=== PATIENT | male | born 1945 | race Caucasian/White ===

== ENCOUNTER 2016-10-08 06:00 | Inpatient (IN) | payer MEDICARE, BC ==
[~2016-10-08] VITALS: Ht 182.9 cm; Wt 73.0 kg
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
--- NOTE | ~2016-10-08 | CATH ---
Cardiac Diagnostic Report Demographics Patient Name FAITH Palumbo Gender Male Date of 1945 Age 71 year(s) Patient Number [id number] Date of Study 10/10/2016 Visit Number [id number] Room Number G63[address] [place] [id number] Ht 182.88 cm Wt 73.03 kg Referring [facility] Primary Physician Physician Performing Efstratiou Secondary Physician Physician Antonette Crenshaw MD Diagnostic Efstratiou Assisting Physician Physician Antonette Crenshaw MD Interventional Physician Freelance Copywriter Physician Findings and Conclusions Diagnostic Findings and Conclusion Mild pulmonary hypertension (Echo suggested severe) Severe 3 vessel CAD- MARTE to LAD is adequate-large Ramus is patent The inferior wall is supplied through collaterals form the septal nuclear unit operator which has a 90% ostial lesion. Both Circumflex and RCA are occluded as well as the PLB graft Diagnostic Recommendations Medical treatment because of recent hemorrhagic brain contusion After clearance from Neurosurgery PCI to Septal Procedure Description The patient was brought to the diagnostic cardiac catheterization-EP laboratory in the fasting, non-sedated state. Informed consent was obtained in the written and verbal form after the risks and benefits were explained. The patient had no further questions and agreed to proceed. The planned puncture-incision site(s) were shaved and prepped with ChloraPrep and draped in the usual sterile manner. Conscious sedation, supplemental oxygen, and pain control medications were delivered by a registered nurse under physician guidance. Surface ECG rhythm, blood pressure measurement, and pulse oximetry were monitored throughout the procedure. Arterial access. The access site was infiltrated with lidocaine. The vessel was entered with the Seldinger technique. A sheath was advanced into the vessel and used for catheter placement. Selective left coronary angiography. A catheter was advanced into the left coronary vessel ostium under Fluoroscopic guidance. Contrast was injected by hand. Images were obtained in multiple projections. Selective right coronary angiography. A catheter was advanced into the right coronary vessel ostium under fluoroscopic guidance. Contrast was injected by hand. Images were obtained in multiple projections. Selective MARTE graft angiography. A catheter was advanced into the left internal mammary graft ostium under fluoroscopic guidance. Contrast was injected by hand. Images were obtained in multiple projections. Right heart catheterization. A Tipton Kavitha catheter was successfully advanced to the right atrium, right ventricle, pulmonary artery, and pulmonary artery wedge position under fluoroscopic guidance. Resting hemodynamics were obtained. Measurements included pressures, arterial and venous oxygen saturations and calculating cardiac output. Arterial artery hemostasis was achieved. The patient was transferred to a regular nursing floor via cart accompanied by a nurse. The patient left the laboratory in stable condition. Diagnostic Cath Status: Urgent Procedure Procedure Type Diagnostic procedure:Aortogram:, Aortic Root, Angiography:, RHC w/Coronary Indications: Non-ST elevation SC and Chest pain. The procedure was explained in detail to the patient. Risks, complications and alternative treatments were reviewed. Written consent was obtained. Medications Reviewed with Patient prior to Procedure. Angiographic Findings Dominance: Right Cardiac Arteries and Lesion Findings LMCA: Normal (0% Stenosis).patent LAD: Abnormal.100%mid Diag 1 30% Diag 2 95% Septal 90% provides collaterals to inferior wall MARTE to LAD patent , paimiut vessel has 30% at the anastomosis and 50% distally Lesion on Mid LAD: Mid subsection.100% stenosis . Lesion on 1st Diag: Proximal subsection.30% stenosis . Lesion on 2nd Diag: Proximal subsection.94% stenosis . Lesion on 1st Septal: Ostial.90% stenosis . LCx: Abnormal.100% ostial Lesion on Prox CX: Ostial.100% stenosis . RCA: Abnormal.100% mid diffusely diseased SVG to PL is totally occluded Lesion on Mid RCA: Mid subsection.100% stenosis . Ramus: Normal (0% Stenosis). Cardiac Grafts - There is a MARTE graft that originates at the MARTE and attaches to the Mid LAD (MARTE to LAD patent paimiut vessel has 30% at the anastomis and 50% distally). - There is a graft that originates at the Aorta Right and attaches to the 1st RPL (SVG to PLB is 100% occluded). Coronary Tree Procedure Data Procedure Date Date: 10/10/2016Start: 11:59 AMEnd: 12:52 PM Entry Locations - Antegrade Percutaneous access was performed through the Left Brachial vein. A 6 Fr sheath was inserted. Hemostasis was successfully obtained using Manual Compression. Closure Comments: by Pradeep. - Retrograde Percutaneous access was performed through the Left Radial artery (Primary location). A 6 Fr sheath was inserted. Hemostasis was successfully obtained using Mechanical Compression. Closure Comments: 15 cc air in r band deployed by Pradeep. Procedure Medications Order and Administration + + +-------+-------+ !Time !Medication !Dosage !Route ! + + +-------+-------+ !10/10/2016 !Fentanyl !25 mcg !I.V. ! !11:59 AM ! ! ! ! + + +-------+-------+ !10/10/2016 !Oxygen !2 l/min!NC ! !12:04 PM ! ! ! ! + + +-------+-------+ !10/10/2016 !PAE Radial Cocktail: Heparin 5000 units, ! !I.A. ! !12:05 PM !Nitroglycerin 200mcg, Verapamil 3 mg ! ! ! ! !(ACC_3) ! ! ! + + +-------+-------+ Devices Used - A6 Fr. Balloon Wedge Catheterwas used for:Right heart cath. - A6 Fr. BS JR 4 Diag. Catheterwas used for:Right coronary angiography. - A5 Fr. BS JR 4 Diag. Catheterwas used for:Right coronary angiography. - A5 Fr. BS MPA2 Diag. Catheterwas used for:SVG. - A5 Fr. BS JL 3.5 Diag. Catheterwas used for:Left coronary angiography. - A5 Fr. BS Angled Pigtail Diag. Catheterwas used for:Aortic Root. Contrast Material - Isovue [id number] ml Fluoroscopy Time: Diagnostic: 14:12 minutes. Total: 14:12 minutes. Fluoroscopy Dose: Diagnostic: 1263 mGy. Total: 1263 mGy. Estimated Blood Loss: 25 ml. Medical History Allergies - Codiene. Risk Factors The patient risk factors include:prior PCI; prior CABG on 04/02/1999;previous vascular surgery: Femoral popliteal bypass;peripheral arterial disease, cerebrovascular disease, physical activity, treated hypercholesterolemia, treated hypertension, family history of premature CAD, insulin-treated diabetes mellitus, last creatinine: 1.1 mg/dl, creatinine clearance: 64.55 ml/min, dyslipidemia, former tobacco use and prior SC . Admission Data Admission Date: 10/08/2016 Admission Time: 07:08 AM Admit Source: Transfer acute care facility Insurance Payors: Medicare. Admission Medications + +------+------+ + + + + !Medication !Dosage!Times !Last !Last !Administered !Comments ! ! ! !Per !Delivery !Delivery ! ! ! ! ! !Day !Date !Time ! ! ! + +------+------+ + + + + !Aspirin ! ! ! ! ! ! ! !(any) ! ! ! ! ! ! ! + +------+------+ + + + + !HANY ! ! ! ! ! ! ! !Inhibitor ! ! ! ! ! ! ! !(any) ! ! ! ! ! ! ! + +------+------+ + + + + !Beta Mariana! ! ! ! ! ! ! !(any) ! ! ! ! ! ! ! + +------+------+ + + + + !Statin (any)! ! ! ! ! ! ! + +------+------+ + + + + !Prasugrel ! ! ! ! ! ! ! + +------+------+ + + + + !Nitrates (iv! ! ! ! ! ! ! !or buccal) ! ! ! ! ! ! ! + +------+------+ + + + + Clinical Evaluation Leading to Procedure - The patient's CAD presentation was assessed as: Non-STEMI. - The patient's anginal syndrome during the past two weeks was assessed as: Class III according to the [place] Cardiovascular Society Classification System (CCS). Anti-anginal medications were prescribed during the past two weeks. The medications are: Beta Blockers, Long Acting Nitrates and Other. - The patient has been in a state of heart failure within the past two weeks. - The patient's heart failure status was assessed as NYHA Class III, with CHF symptoms of VANCE. Snapshots Hemodynamics Condition: Rest O2 Consumption: Estimated: 229.71Heart Rate: 77 bpm Oxygen Saturation +--------+-----+----+ +---+ + !Location!pCO2 !pO2 !% Saturation !Hgb!O2 Content ! +--------+-----+----+ +---+ + !FA ! ! !93.3 !9.1! ! +--------+-----+----+ +---+ + !PA ! ! !59 !9.1! ! +--------+-----+----+ +---+ + !RA ! ! !62.1 !9.1! ! +--------+-----+----+ +---+ + Pressures (mmHg) +-----+ + !Site !Pressure ! +-----+ + !RA !7/6 (4) ! +-----+ + !RV !35/0 ,3 ! +-----+ + !PCW !14/15 (10) ! +-----+ + !PA !36/4 (21) ! +-----+ + !AO !148/66 (98) ! +-----+ + !AO !70/36 (50) ! +-----+ + Cardiac Output +------+ + + + !Method!CO (l/min) !CI (l/min/m2) !SV (ml) ! +------+ + + + !Klarissa !5.41 !2.8 !70.22 ! +------+ + + + Shunts Oxygen Values O2 Capacity 123.76 O2 Consumption 229.71 Flows (l/min) Qs 5.95 Vascular Resistance (dynes x sec x cm-5) + +----+----+----+----+---------+-------+ !CO method !TSVR!SVR !TPVR!PVR !TPVR/TSVR!PVR/SVR! + +----+----+----+----+---------+-------+ !Klarissa !9.23!8.58!3.92!2.11!0.42 !0.25 ! + +----+----+----+----+---------+-------+ !Qp or Qs !8.39!7.8 ! ! ! ! ! + +----+----+----+----+---------+-------+ Signatures dtt: Neena Connor dtd: 10/10/16 1159 Physician Self Edit
--- NOTE | ~2016-10-08 | HP ---
PATIENT'S NAME: [facility] AGE: 71 Y [address] ROOM: [place] [address] LOCATION: GPCU ADMIT DATE: 10/08/2016 History & Physical DISCHARGE DATE: FAMILY PHYSICIAN: PHYSICIAN, UNKNOWN ATTENDING PHYSICIAN: JEANNINE VASQUEZ DATE OF SERVICE: CHIEF COMPLAINT: Fall. HISTORY OF PRESENT ILLNESS: A 71-year-old gentleman with a past medical history of coronary artery disease, peripheral vascular disease, diabetes, and hypertension, was at [place], where he suffered a fall from his electric cart, hitting his head without any loss of consciousness. He was taken to the emergency department where a CAT scan was done, which did show hemorrhagic left cortical contusion. He was transferred here for further medical care. On inquiry, he stated that during his stay in the emergency department, he felt the chest pressure which was located in the center of chest, sudden in onset 10/09. No alleviating or aggravating factors. No radiation associated with some diaphoresis and shortness of breath. It lasted about 10 minutes. He also endorsed having some dizziness. On further inquiry, he denied having any cough production, but stated that he is short of breath for a long time with minimal exertion. Denies any abdominal pain, burning on urination, but stated that he is going to get the ureteral stent replaced on the left side in next couple of days. No extremity swelling reported. REVIEW OF SYSTEMS: All other systems reviewed and were negative except what is mentioned in the HPI. ALLERGIES: THE PATIENT IS ALLERGIC TO CODEINE. PAST MEDICAL HISTORY: Significant for: 1. Coronary artery disease with CABG done in 1999, later multiple PCIs done at [facility] in [place]. Peripheral vascular disease status post right femoral aortic bypass. 2. 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 3. Renal calculi, status post left stent. 4. Chronic respiratory failure, not on any oxygen at home. 5. Sleep apnea not using CPAP at home. 6. Essential hypertension. PATIENT'S NAME: [facility] AGE: 71 Y [address] ROOM: [place] [id number] LOCATION: GPCU ADMIT DATE: 10/08/2016 History & Physical DISCHARGE DATE: FAMILY PHYSICIAN: PHYSICIAN, UNKNOWN ATTENDING PHYSICIAN: JEANNINE VASQUEZ 7. Chronic thrombocytopenia. MEDICATIONS: Medications are being reconciled right now. SOCIAL HISTORY: Quit smoking in 1986. No alcohol or drug abuse. Lives in [place]. FAMILY HISTORY: Significant for coronary artery disease in mom and dad. PHYSICAL EXAMINATION: VITAL SIGNS: 147/67, 52, afebrile, 16. GENERAL: No acute distress. Alert and oriented x3. HEENT: Head, left-sided contusion noted on the head. Eyes, nonicteric, no pallor. Oropharynx, dry mucous membranes. CARDIOVASCULAR: S1, S2. No murmurs, rubs, or gallops. LUNGS: Clear to auscultation bilaterally. ABDOMEN: Soft, nontender, nondistended. Bowel sounds present. EXTREMITIES: Left lower extremity below-knee amputation. Right side does not reveal any clubbing, cyanosis, or edema. MUSCULOSKELETAL: No muscle tenderness or joint swelling noted. NEUROLOGIC: Cranial nerves 2 through 12 intact. No motor or sensory deficits. PSYCH: Normal affect, mood, and speech. LYMPHATICS: No lymphangitis or lymphadenopathy noted. ENDOCRINE: No thyromegaly or cushingoid features noted. LABORATORY DATA: Lab work from outside facility showed sodium of 147, potassium 3.1, chloride 114, bicarb 24, BUN 15, creatinine 1.3, platelets of 8.3, hemoglobin of 9.3 and white count of 4.6. CT scan as mentioned in the HPI showed hemorrhagic cortical contusion without any epidural or subarachnoid hemorrhage. CT of the spine was also done, which showed occlusion of the left vertebral artery due to chronic atherosclerosis. Chest x-ray was done which was within normal limits. An EKG was done on arrival to our hospital which did show sinus rhythm with T-wave inversions in the anterolateral leads. ASSESSMENT/PLAN: 1. Hemorrhagic cortical contusion. 2. Non-ST segment elevation myocardial infarction. 3. Insulin-dependent diabetes mellitus. 4. Peripheral vascular disease. 5. Hyperlipidemia. 6. Hypertension. PATIENT'S NAME: JER CUEVAS [facility] AGE: 71 Y [address] ROOM: [place] [address] LOCATION: GPCU ADMIT DATE: 10/08/2016 History & Physical DISCHARGE DATE: FAMILY PHYSICIAN: PHYSICIAN, UNKNOWN ATTENDING PHYSICIAN: JEANNINE VASQUEZ 7. Chronic respiratory failure. 8. Thrombocytopenia. 9. Hypokalemia. 10. Renal calculi. PLAN: We are going to admit this patient. Dr. Mejia has been consulted from Neurosurgery. The plan is to just monitor him here in the hospital. This situation has been complicated by this chest pain and EKG changes and the rising troponins which have been 0.1 and 0.3 now. Cardiology has been consulted. No antiplatelets or heparin drip can be started. At this point, we are going to get further troponin levels as well as echocardiograph. We are going to obtain records from the [facility] in [place]. We are going to start him on statin. We will replace the potassium. Sliding scale insulin, we will obtain HGB A1c, TSH, and lipid profile. We will monitor his pulse ox here. He has been getting low saturations here. We will watch his platelets for now. Further management will depend on his progress in the hospital. MD TERI TAMAYO/rimma /[id number] D: 253 T: HISTORY & PHYSICAL
--- NOTE | ~2016-10-08 | ECHO ---
Transthoracic Echocardiography Report (TTE) Demographics Patient Name JER CUEVAS Date of Study 10/08/2016 Patient Number [id number] Visit Number [id number] Date of 1945 Room Number G6317 Gender Male Number Age 71 year(s) Referring Nikolas Whitman Head Cleaning Porter Silas Crenshaw MD RDCS, RVT Physician Interpreting [place] [employer] Compliance Manager Physician Antonette Crenshaw MD Supervising Ordering [facility] MD/MLP Physician Antonette Crenshaw MD Nurse Stress Hot Stick Man Conclusions Contractility Score Summary Global Left Ventricular Hypokinesis was noted, severe in the inferior wall Summary The estimated left ventricular ejection fraction is 35%. Mild to moderate concentric left ventricular hypertrophy. Diastolic assessment reveals Grade I diastolic dysfunction. The left atrium is severely dilated by LA volume index measurement. Moderate-severe tricuspid regurgitation by color Doppler. There is severe pulmonary hypertension. The pulmonary pressure (RVSP) is 81.59 mmHg. The ascending aorta appears mildly dilated. The maximum diameter measures 3.6 cm. Procedure Type of Study TTE procedure:2D Echocardiogram. Procedure Date Date: 10/08/2016 Start: 11:08 AM Study Location: Inpatient Portable Technical Quality: Adequate visualization Indications:Elevated Troponin. Appropriate Use Criteria: 9 Patient Status: STAT HR: 70 bpm BP: 176/77 mmHg M-Mode/2D Measurements LV Diastolic Dimension: 5.14 cm LV Systolic Dimension: 4.75 cm LV Septum Diastolic: 1.25 cm LV PW Diastolic: 1.23 cm Cardiac Output: 6.12 l/min LA Dimension: 3.7 cm LVOT: 2.2 cm LVOT VTI: 23 cm RV Base: 3.16 cm LV Stroke volume: 87.39 ml RV Length: 6.41 cm TAPSE: 1.7 cm TDI-S': 9.65 cm/s Doppler Measurements AV Peak Velocity: 1.75 m/s MV Peak E-Wave: 0.76 m/s AV Peak Gradient: 12.25 mmHg MV Peak A-Wave: 1.11 m/s AV Mean Gradient: 6 mmHg MV E/A Ratio: 0.68 LVOT Peak Velocity: 1.17 m/s MV Deceleration Time: 183 msec TR Velocity:4.08 m/s PV Peak Velocity: 0.84 m/s TR Gradient:66.59 mmHg PV Peak Gradient: 2.8 mmHg Estimated RAP:15 mmHg Estimated PASP: 81.59 mmHg Estimated RVSP: 82 mmHg A' Septal Velocity: 0.1 m/s E' Septal Velocity: 0.04 m/s A' Lateral Velocity: 0.14 m/s E' Lateral Velocity: 0.05 m/s Findings Left Ventricle Mild to moderate concentric left ventricular hypertrophy. Diastolic assessment reveals Grade I diastolic dysfunction. The left ventricle is borderline dilated . Right Ventricle Normal right ventricle structure and function. Left Atrium The left atrium is severely dilated by LA volume index measurement. Right Atrium The right atrium is mildly dilated. Mitral Valve Mild-moderate mitral regurgitation by color Doppler. Mild mitral annular calcification. Aortic Valve Normal aortic valve structure and function. Tricuspid Valve Moderate-severe tricuspid regurgitation by color Doppler. There is severe pulmonary hypertension. The pulmonary pressure (RVSP) is 81.59 mmHg. Pulmonic Valve Normal pulmonic valve structure and function. Pericardial Effusion No evidence of pericardial effusion. Miscellaneous The ascending aorta appears mildly dilated. The maximum diameter measures 3.6 cm. Suboptimal subcostal window to evaluate the IVC and interatrial septum. Pleural Effusion No evidence of pleural effusion. Contractility Score LV regional wall motion:(0-Non visualized 1-Normal 2-Hypokinesis 3-Akinesis 4-Dyskinesis 5-Aneurysm) Signature dtt: Neena Connor dtd: 10/08/16 1108 Physician Self Edit
--- NOTE | ~2016-10-08 | CATH ---
Cardiac Interventional Report Demographics Patient Name FAITH Palumbo Gender Male Date of 1945 Age 71 year(s) Patient Number [id number] Date of Study 10/12/2016 Visit Number [id number] Room Number G6317 [place] [id number] Ht 182.88 cm Wt 73.03 kg Referring Khanhkrupaloni Khalil Primary Physician Physician Performing Efstratiou Secondary Physician Physician Antonette Crenshaw MD Diagnostic Assisting Physician Physician Interventional Efstratiou Physician Art Psychotherapist Physician Antonette Crenshaw MD Findings and Conclusions Interventional Findings and Conclusion 90% ostial stenosis of the large septal which supplies collaterals to the inferior wall. Successful GORGE to septal. Interventional Recommendations Modified anti-platelet therapy with low dose Brilinta to prevent intracranial hemorrhage. Patient is not responsive to clopidogrel per Accumetrix test. Procedure Description The patient was brought to the diagnostic cardiac catheterization-EP laboratory in the fasting, non-sedated state. Informed consent was obtained in the written and verbal form after the risks and benefits were explained. The patient had no further questions and agreed to proceed. The planned puncture-incision site(s) were shaved and prepped with ChloraPrep and draped in the usual sterile manner. Conscious sedation, supplemental oxygen, and pain control medications were delivered by a registered nurse under physician guidance. Surface ECG rhythm, blood pressure measurement, and pulse oximetry were monitored throughout the procedure. Arterial access. The access site was infiltrated with lidocaine. The vessel was entered with the Seldinger technique. A sheath was advanced into the vessel and used for catheter placement. Angioplasty and Stent Placement: A guiding catheter was used to intubate the vessel. A 0.14 wire was then used to cross the lesion. A balloon catheter was placed across the lesion and inflated. The balloon catheter was then removed. A Drug Eluting Stent was placed and inflated. Post placement angiograms were performed. Arterial artery hemostasis was achieved. The patient was transferred to a regular nursing floor via cart accompanied by a nurse. The patient left the laboratory in stable condition. Interventional Cath Status: Urgent Procedure Procedure Type PCI procedure:Drug Eluting Coronary Stent:, LAD Indications: Non-ST elevation UT. The procedure was explained in detail to the patient. Risks, complications and alternative treatments were reviewed. Written consent was obtained. Medications Reviewed with Patient prior to Procedure. Angiographic Findings Dominance: Right Cardiac Arteries and Lesion Findings LAD: Lesion on 1st Septal: Ostial.90% stenosis 12 mm length reduced to 0%. Pre procedure KASH III flow was noted. Post Procedure KASH III flow was present. The guidewire cross was successful.The lesion was diagnosed as a high risk lesion.Culprit lesion. Devices used - Whisper Wire .014 x 190. Number of passes: 1. - NC Emerge Balloon 2.5 x 12. 1 inflation(s) to a max pressure of: 16 marisela. - Emerge Balloon 1.5 x 12. 1 inflation(s) to a max pressure of: 14 marisela. - Promus Premier 2.5 x 12 Stent. 1 inflation(s) to a max pressure of: 12 marisela. - NC Emerge Balloon 3.0 x 8. 3 inflation(s) to a max pressure of: 18 marisela. Cardiac Grafts - There is a MARTE graft that originates at the MARTE and attaches to the Mid LAD. - There is a graft that originates at the Aorta Right and attaches to the 1st RPL. Coronary Tree Procedure Data Procedure Date Date: 10/12/2016Start: 09:48 AMEnd: 10:46 AM Entry Locations - The Right Radial artery access attempt was not successful. Hemostasis was successfully obtained using Mechanical Compression. Entry Comments: Unable to advance wire. Will switch to femoral access.. Closure Comments: 10 ml of air in R. Band by Linda Blanco . - Retrograde Percutaneous access was performed through the Left Femoral artery (Primary location). A 6 Fr sheath was inserted. Hemostasis was successfully obtained using Suture. Closure Comments: Sutured in to place by Linda Blanco . Procedure Medications Order and Administration + + + + + !Time !Medication !Dosage !Route ! + + + + + !10/12/2016 09:45 AM!Versed !1 mg !I.V. ! + + + + + 10/12/2016 09:47 AM!Fentanyl !50 mcg !I.V. ! + + + + + !10/12/2016 09:51 AM!Oxygen !2 l/min !NC ! + + + + 10/12/2016 10:01 AM!Versed !1 mg !I.V. ! + + + + + !10/12/2016 10:07 AM!Heparin (ACC_3) !7000 units!I.V. bolus ! + + + + + !10/12/2016 10:17 AM!Heparin (ACC_3) !2000 units!I.V. bolus ! + + + + + !10/12/2016 10:40 AM!Brilinta (Ticagrelor) (ACC_20)!90 mg !P.O. ! + + + + + Devices Used - A6 Fr. XBLAD 3.5 Guide Catheterwas used for:LAD Intervention. - A6 Fr. BS JR 4 Diag. Catheter. Comments: Not used.. Contrast Material - Isovue 30732 ml Fluoroscopy Time: Diagnostic: 11:00 minutes. Total: 11:00 minutes. Fluoroscopy Dose: Diagnostic: 868 mGy. Total: 868 mGy. Estimated Blood Loss: 15 ml. Medical History Allergies - Codiene. - Codiene. Risk Factors The patient risk factors include:prior PCI; prior CABG on 04/02/1999;previous vascular surgery: Femoral popliteal bypass;peripheral arterial disease, cerebrovascular disease, physical activity, treated hypercholesterolemia, treated hypertension, family history of premature CAD, insulin-treated diabetes mellitus, chronic lung disease, last creatinine: 1.1 mg/dl, creatinine clearance: 64.55 ml/min, dyslipidemia, former tobacco use and prior UT . Admission Data Admission Date: 10/08/2016 Admission Time: 07:08 AM Admit Source: [facility] care facility Insurance Payors: Medicare. Admission Medications + +------+------+ + + + + !Medication !Dosage!Times !Last !Last !Administered !Comments ! ! ! !Per !Delivery !Delivery ! ! ! ! ! !Day !Date !Time ! ! ! + +------+------+ + + + + !Aspirin ! ! ! ! ! ! ! !(any) ! ! ! ! ! ! ! + +------+------+ + + + + !HANY ! ! ! ! ! ! ! !Inhibitor ! ! ! ! ! ! ! !(any) ! ! ! ! ! ! ! + +------+------+ + + + + !Beta Mariana! ! ! ! ! ! ! !(any) ! ! ! ! ! ! ! + +------+------+ + + + + !Statin (any)! ! ! ! ! ! ! + +------+------+ + + + + !Prasugrel ! ! ! ! ! ! ! + +------+------+ + + + + !Nitrates (iv! ! ! ! ! ! ! !or buccal) ! ! ! ! ! ! ! + +------+------+ + + + + Clinical Evaluation Leading to Procedure Diagnosed on 10/12/2016 12:00 AM. - The patient's CAD presentation was assessed as: Non-STEMI. - The patient's anginal syndrome during the past two weeks was assessed as: Class III according to the Wallace Cardiovascular Society Classification System (CCS). Anti-anginal medications were prescribed during the past two weeks. The medications are: Beta Blockers, Long Acting Nitrates and Other. - The patient has been in a state of heart failure within the past two weeks. - The patient's heart failure status was assessed as NYHA Class III, with CHF symptoms of VANCE. Snapshots Hemodynamics Condition: Rest O2 Consumption: Estimated: 222.39Heart Rate: 67 bpm Pressures (mmHg) +-----+ + !Site !Pressure ! +-----+ + !AO !142/50 (84) ! +-----+ + !AO !130/53 (83) ! +-----+ + !AO !141/57 (88) ! +-----+ + Shunts Oxygen Values O2 Capacity 123.76 O2 Consumption 222.39 Signatures dtt: Neena Connor dtd: 10/12/16 0948 Physician Self Edit
--- NOTE | ~2016-10-08 | CON ---
PATIENT'S NAME: JER CUEVAS [facility] AGE: 71 Y [address] ROOM: G6317 [place], [place] [address] LOCATION: GPCU ADMIT DATE: 10/08/2016 Consultation DISCHARGE DATE: FAMILY PHYSICIAN: PHYSICIAN, UNKNOWN ATTENDING PHYSICIAN: STEPH THAKUR REFERRING PHYSICIAN: Trip Mejia MD HISTORY OF PRESENT ILLNESS: I saw this 71-year-old male in the hospital today. He apparently fell off his electric cart and hit his head on the left side and there was no history of loss of consciousness. He was consequently transferred here from [place] because a CT scan of the brain that was done showed a very small acute subdural in the right posterior temporal lobe as well as a very small area of contusion involving the inferior temporal lobe. He did not have any untoward effect from this trauma. He, however, did complain of very mild headache. A relevant portion of his medical history is that he has history of coronary artery disease as well as peripheral vascular disease. He is diabetic and hypertensive. While he was in the hospital, he stayed stable. As far as his neurological status was concerned, he still remained awake, alert, and because of the medical history obtained when he came in, he had a coronary artery angiogram done which showed significant stenosis of the coronary artery, and the question was whether he should be stented now or we should wait. PAST MEDICAL HISTORY: He has a history of coronary artery disease, had a CABG done in 1999. He has a history of peripheral vascular disease, requiring a left below-knee amputation, and he also had right aortofemoral bypass. He is an insulin- dependent diabetic. He has chronic respiratory failure and suffers from sleep apnea. He is also hypertensive. He has a history of chronic thrombocytopenia. MEDICATIONS: See the list in the chart. SOCIAL HISTORY: He stopped smoking in 1986. He does not drink alcohol. He does not use drugs. Lives in [place]. REVIEW OF SYSTEMS: See the admitting review. No significant change. PHYSICAL EXAMINATION: GENERAL: On examination in the hospital, he is a 71-year-old male. He did not appear to be in any acute distress. VITAL SIGNS: His blood pressure was 113/60, pulse was 61 and regular, respirations were 18, temperature was 98.1. His O2 sats were 94% on room air. PATIENT'S NAME: JER CUEVAS [facility] AGE: 71 Y [address] ROOM: G6317 [place], [place] [address] [facility] ADMIT DATE: 10/08/2016 Consultation DISCHARGE DATE: FAMILY PHYSICIAN: PHYSICIAN, UNKNOWN ATTENDING PHYSICIAN: STEPH THAKUR HEENT: Normocephalic. NECK: There was no tenderness on palpating the cervical spinous processes. CHEST: Clear. HEART: Rate was regular. ABDOMEN: Soft. NEUROLOGIC: The cranial nerve examination was normal. The motor examination was normal. Sensory examination was normal. Reflexes were normal in the upper extremities. In the lower extremities, the knee jerks were normal. The ankle jerk was also normal on the right side. The toe was downgoing on the right. DIAGNOSTIC DATA: I reviewed the CT scan that was done today. It shows that the small subdural hematoma was still present. There was some layering over the tentorium along with a very small area of contusion. IMPRESSION: In light of the small size of the hematoma and the significant stenosis in the coronary artery, my feeling is that this gentleman might be better off having his coronary arteries done now after which he could be discharged home. I explained the situation to him and gave him the option realizing that there was always the possibility that the hematoma could get bigger and not be symptomatic. If it gets bigger and is symptomatic, it is primarily in the inferior temporal lobe which is on the right side which is nondominant. If that occurs, then it could be taken care of quite easily. He did agree that he was prepared to take the risks and have his coronary artery stented tomorrow. MD HERMILA BLOUNT/rimma /[id number] d: 10/12/16 0045 t: 11/10/16 1228, CONSULTATION REPORT
[2016-10-08] MEDS ORDERED: ASPIRIN LO-DOSE81 MG PO (08:45)
[2016-10-08] MEDS ORDERED: NORVASC10 MG PO (08:45)
[2016-10-08] MEDS ORDERED: ZYLOPRIM100 MG PO (08:45)
[2016-10-08] MEDS ORDERED: COLACE100 MG PO (08:46)
[2016-10-08] MEDS ORDERED: FOLIC ACID 40400 MCG PO (08:46)
[2016-10-08] MEDS ORDERED: LEVOTHROID(SYN75 MCG PO (08:47)
[2016-10-08] MEDS ORDERED: NORCO 5-325 TA1 EACH PO (08:47)
[2016-10-08] MEDS ORDERED: PRINIVIL (ZESTRI5 MG PO (08:48)
[2016-10-08] MEDS ORDERED: LIPITOR80 MG PO (08:48)
[2016-10-08] MEDS ORDERED: REGLAN10 MG PO (08:49)
[2016-10-08] MEDS ORDERED: OMEPRAZOLE40 MG PO (08:50)
[2016-10-08] MEDS ORDERED: DITROPAN5 MG PO (08:50)
[2016-10-08] MEDS ORDERED: TRADJENTA5 MG PO (08:51)
[2016-10-08] MEDS ORDERED: COREG3.125 MG PO (08:51)
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
[2016-10-08 10:46] LABS: BICARBONATE 25.9 mmol/L (18.0-23.0); PCO2 40 mmHg (35-45); PO2 70 mmHg (80-90)
--- NOTE | 2016-10-08 19:10 | NUR ---
PATIENT ADMITTED THIS AM POST FALL AND HIT HEAD WELL HAVING CHEST PAIN. PATIENT HAS DENIED CHEST PAIN SINCE ADMISSION BUT DOES COMPLAIN OF A HEADACHE. HE HAS ULTRAM FOR PAIN. PATIENT IS ALERT AND ORIENTED.
--- NOTE | 2016-10-09 05:32 | NUR ---
Significant Event: PATIENT A/O X3. VSS. PATIENT GIVEN ULTRAM X1 FOR HEAD PAIN. NO C/O CHEST PAIN DURING THIS SHIFT. CARDIAC ENZYMES TRENDING DOWNWARD. PATIENT HAS PROSTHESIS FOR LEFT LEG, AMBULATES TO BATHROOM 1 ASSIST. ACCU CHECKS Q 6HR. PATIENT USES URINAL WHILE IN BED. Follow up: FOLLOW CARE PLAN.
[2016-10-09 06:31] LABS: BASOPHIL % 0.5 %; EOSINOPHIL # 0.1 K/uL (0.0-0.5); EOSINOPHIL % 2.4 %; HEMATOCRIT 27.9 % (37.0-53.0); HEMOGLOBIN 9.1 g/dL (11.0-16.0); IMMATURE GRANULOCYTE % 0.3 %; LYMPHOCYTE # 1.7 K/uL (0.8-4.0); LYMPHOCYTE % 28.8 %; MCHC 32.6 gm/dL (32.0-36.5); MCV 104.1 fl (83.0-98.0); MONOCYTE # 0.5 K/uL (0.0-1.0); MONOCYTE % 8.6 %; MPV 11.6 fl (9.4-12.4); NEUTROPHIL # (ANC) 3.5 K/uL (1.4-9.0); NEUTROPHIL % 59.4 %; NRBC % 0 /100WBC (0-0.00); PLATELET COUNT 77 K/uL (150-450); RBC 2.68 M/uL (3.50-5.50); RDW-CV 13.7 % (11.9-14.6); WBC 5.9 K/uL (4.0-11.0)
[2016-10-09 06:47] LABS: ANION GAP 10.9 (10.0-19.0); BLOOD UREA NITROGEN 14 mg/dL (6-24); CALCIUM 8.1 mg/dL (8.5-10.5); CHLORIDE 112 mMol/L (96-110); CO2 26 mMol/L (22-32); CREATININE 1.1 mg/dL (0.6-1.3); ESTIMATED GFR (MDRD EQUATION) > 60; POTASSIUM 3.9 mMol/L (3.7-5.1); SODIUM 145 mMol/L (135-145)
[2016-10-09] MEDS ORDERED: NEURONTIN100 MG PO (08:56)
[2016-10-09] MEDS ORDERED: EFFIENT10 MG PO (08:57)
[2016-10-09] MEDS ORDERED: NITROGLYCERIN0.4 MG SL (08:58)
[2016-10-09] MEDS ORDERED: ZOLOFT100 MG PO (08:58)
--- NOTE | 2016-10-09 13:25 | NUR ---
1220 Introduced self and CM role to Keyshawn Navin. Navin tells me that he lives at home in [place], [place] with his , Mel and he plans to return there when he is medically cleared to do so. Navin says that his or other family will come and pick him up to take him home when he is cleared to do so. Navin states that his PCP is Dr.Sri Koch in [place]. He gets his medications filled at [facility] in [place] and he manages them himself with no difficulties. Navin denies any need for DME at baseline stating that he gets around fine without any DME and doesn't feel like he will need any when he goes home. He plans on going home in the next few days. "Doctor says that I will have some sort of procedure tomorrow and if it all goes well, then I can go home on Sunday." In reviewing his chart it appears that he is going to have a heart cath in tomorrow. Navin denies any other questions, needs or concerns. Left CM contact information on his whiteboard incase any questions might come up while he is still here with us. CM to continue to follow and assist. Plan home.
--- NOTE | 2016-10-09 17:13 | NUR ---
Significant Event: Patient A/O x 3. Up with 1A to bathroom. VSS on 2L per ACS. Denies chest pain throughout the day. Has had temporal and frontal headache which has improved significantly with Ultram given this morning and home dose of [place] around noon. LFA PIV SL. NPO after midnight for heart cath tomorrow. Neurologically intact. Follow up: Continue as per plan of care. Right and left heart cath tomorrow with Dr. Connor at 0800
--- NOTE | 2016-10-10 04:27 | NUR ---
Significant Event: The patient is Alert and Oriented x3. Denies Numbness and Tingling. Moves spontaneously and to command. Right Pupil irregular shaped, the patient says that is not new and denies any blurred or double vision. Up with 1 Assist, gaitbelt. VSS on 1L oxygen per NC. Denies Pain. Accu checks Q6H. PIV to the Left forearm saline locked. Bruising and Abrasion to the Left posterior head as well as bilateral arms and Right leg. Follow up: [facility] [employer]er 0800
[2016-10-10 11:45] LABS: ANION GAP 10.8 (10.0-19.0); BLOOD UREA NITROGEN 14 mg/dL (6-24); CALCIUM 7.8 mg/dL (8.5-10.5); CHLORIDE 110 mMol/L (96-110); CO2 25 mMol/L (22-32); CREATININE 1.1 mg/dL (0.6-1.3); ESTIMATED GFR (MDRD EQUATION) > 60; MAGNESIUM 1.4 mg/dL (1.8-2.6); POTASSIUM 3.8 mMol/L (3.7-5.1); SODIUM 142 mMol/L (135-145)
--- NOTE | 2016-10-10 17:35 | NUR ---
Significant Event: TO IT SERVICE DELIVERY MANAGER LATE AM, RT BRACHIAL AND RT RADIAL, BOTH CDI. GOOD CSM, NO HEMATOMA. Follow up: MONITOR
--- NOTE | 2016-10-11 05:02 | NUR ---
Significant Event: Patient alert and oriented x3. SBP 140s-160s. All other vital signs stable. On RA-1L O2. Complained of phantom limb pain. Scheduled Gabapentin given. Left radial site dressing C/D/I. CSM WNL. Left brachial site dressing with small drainage. Drainage marked. No new since first assessment. Patient very concerned about bowels. Order for 150ml Mag Citrate with little results. Accuchecks changed to ACHS. Bilateral forearm PIVs saline locked. Up to commode with 1 assist, gaitbelt. Patient calm and cooperative with all cares. Follow up: Continue to monitor per plan of care.
[2016-10-11 06:26] LABS: ALBUMIN 2.3 gm/dL (3.5-5.0); ANION GAP 13.9 (10.0-19.0); CALCIUM 8.1 mg/dL (8.5-10.5); CREATININE 1.3 mg/dL (0.6-1.3); PHOSPHORUS 3.1 mg/dL (2.5-4.9); POTASSIUM 3.9 mMol/L (3.7-5.1)
--- NOTE | 2016-10-11 16:51 | NUR ---
Significant Event: pt has been very sleepy all this shift. DID GET UP AND WALK WITH P.T. X2, HAS REFUSED MEALS BREAKFAST AND NOON, DID ORDER SOMETHING FOR SUPPER. WAITING CT TO RECHECK HEAD BLEED PRIOR TO POSSIBLE CATH SUNDAY. DR GLASER NOTIFIED OF CONSULT. Follow up: MONITOR
--- NOTE | 2016-10-12 05:30 | NUR ---
Significant Event: Patient alert and oriented x3. Vital signs stable. On RA-2L this shift. No complaints of pain. Better appetite with supper. Dr. Mejia saw around shift change. Gave the ok for heart cath today. Dr. Garvey notified. Patient on census. Plavix 600mg given per order. Risks and benefits not done. Patient has been kept NPO since midnight for procedure. Up to bedside commode with 1 assist. 650ml uop. Patient talkative with RN. Calm and cooperative with all cares. Follow up: Heart Cath today.
--- NOTE | 2016-10-12 17:09 | NUR ---
Significant Event: A/O X 3. DROWSEY TODAY. HEART CATH VIA LT. GROIN, STENT TO LAD. SHEATH PULLED ON PCU AT 1500. MONITER GROIN CLOSELY. ATTEMPTED VIA RT. WRIST. MONITER WRIST WELL. Follow up: CONT. TO MONITER CARDIAC STATUS.
--- NOTE | 2016-10-13 04:57 | NUR ---
Significant events: Pt A/Ox3. VSS, on 1-2L/NC. No complaints of pain. Up 1PA. BKA. L) groin cath site, no oozing, hematoma or eccymosis. Voids per urinal. Slept well. ACHS.
[2016-10-13 05:36] LABS: HEMATOCRIT 26.5 % (37.0-53.0)
[2016-10-13 05:53] LABS: ALBUMIN 2.2 gm/dL (3.5-5.0); ALK PHOS 100 IU/L (33-138); ANION GAP 8.8 (10.0-19.0); AST 15 IU/L (10-40); BLOOD UREA NITROGEN 15 mg/dL (6-24); CALCIUM 8.1 mg/dL (8.5-10.5); CHLORIDE 110 mMol/L (96-110); CO2 29 mMol/L (22-32); CREATININE 1.3 mg/dL (0.6-1.3); POTASSIUM 3.8 mMol/L (3.7-5.1); SODIUM 144 mMol/L (135-145); TOTAL BILIRUBIN 0.5 mg/dL (0.0-1.5); TOTAL PROTEIN 5.7 g/dL (6.0-8.4)
[2016-10-13 05:54] LABS: ALT < 10 IU/L (12-78)
--- NOTE | 2016-10-13 14:38 | NUR ---
A - PT SCREENED D/T LOS. A/O X 3. GLU 137, BUN/ENGLISH LECTURER 15/1.3, ALB 2.2. MEDS REVIEWED. DIET DIABETIC W/ INTAKE REF-50%. D - AT RISK W/ INADEQUATE ORAL INTAKE R/T DECREASED APPETITE AEB INTAKE RECORD. I - GOAL: 50% INTAKE. M/E - WILL SEND GLUCERNA TID W/ MEALS. PER DISCHARGE ROUNDING, PT TO DC TOMORROW. WILL F/U IN 2-4 DAYS IF STILL HERE.
--- NOTE | 2016-10-13 16:22 | NUR ---
Significant Event: A/O X 3. UP WALKS WITH PT/OT. LT. GROIN WITH C/D/I DRESSING. RT. WRIST BANDAID PLACED. AFEBRILE. HR SR IN 60-70'S. SAGTS 95% ON ROOM AIR. BUMEX GIVEN IV TODAY. PT. C/O FREQUENCY OF URINATION AND BURNING, SENT UA TO LAB. BLADDER SCAN AT 4757=200. TO RESCAN AT 1700. SBP 123-176. GIVEN B/P MEDS. Follow up: CONT. TO MONITER CARDIAC STATUS. MONITER URINARY STATUS. PLAN DISM. POSSIBLY TOMORROW.
[2016-10-13 16:23] LABS: BILIRUBIN URINE NEGATIVE (NEGATIVE); BLOOD URINE 25 /UL (NEGATIVE); COLOR URINE YELLOW (YELLOW); GLUCOSE URINE NEGATIVE (NEGATIVE); KETONE URINE NEGATIVE (NEGATIVE); LEUKOCYTES URINE 500 /UL (NEGATIVE); NITRITE URINE NEGATIVE (NEGATIVE); PROTEIN URINE 100 mg/dL (NEGATIVE); SPEC GRAVITY URINE 1.005 (1.003-1.035); TURBIDITY URINE 2+ (CLEAR); UROBILINOGEN URINE NORMAL (NORMAL)
[2016-10-13 16:34] LABS: WBC URINE FULL FIELD #/HPF (NEGATIVE)
[2016-10-13 16:35] LABS: BACTERIA URINE NEGATIVE (NEGATIVE); EPITHELIAL URINE RARE #/HPF (NEGATIVE); WBC CLUMPS URINE FEW (NEGATIVE)
--- NOTE | 2016-10-14 04:56 | NUR ---
Significant Event: Patient alert and oriented. VSS on room air. Tylenol given x1 for complaints of headache. Relief noted. Straight cath x1 for 300 ml. Patient stated he felt relief and no futher issues with pressure, retention, or urgency. Pleasant and cooperative with cares Follow up: continue
[2016-10-14 05:18] LABS: ANION GAP 8.6 (10.0-19.0); CALCIUM 8.1 mg/dL (8.5-10.5); CREATININE 1.4 mg/dL (0.6-1.3); MAGNESIUM 1.7 mg/dL (1.8-2.6); POTASSIUM 3.6 mMol/L (3.7-5.1)
--- NOTE | 2016-10-14 15:56 | NUR ---
Significant Event: A/O X 3. TYLENOL FOR HEADACHE. AFEBRILE. HR SR, DID FLIP INTO A-FIB CONTROLLED RATE. THIS IS NOT UNCOMMON FOR THE PT. RT. WRIST AND RT. GROIN WITH BANDAIDS. SATS 94% ON ROOM AIR. K+3.6 AND MG+1.7, REPLACEMENTS GIVEN TODAY. HAS BEEN HAVING SOME ARRTHYMIAS WITH TRIPLETS AND SHORT BURST OF V-TACH. DR. DAN CONDITIONING YARD SUPERVISOR FOR DR. BLACKMAN, WAS MADE AWARE. PT. NOT VOICING ANY SYMPTOMS OR C/O'S. SKIN W/D. USES LT. LEG PROTHESIS WHEN UP, DOES WELL WITH ONE ASSIST. Follow up: CONT. TO MONITER LABS AND CARDIAC STATUS.
--- NOTE | 2016-10-15 04:20 | NUR ---
Patient A/Ox3. VSS on RA. Up standby assist w/prosthetic. Lungs clear/diminished. Bowel sounds present. IV to Lt forearm saline locked. Tylenol x1 for headache with relief. Good urine output but faint yellow, cloudy, and sediment. Possible home today depending on labs.
[2016-10-15 05:08] LABS: ALBUMIN 2.2 gm/dL (3.5-5.0); ANION GAP 11.9 (10.0-19.0); CALCIUM 7.9 mg/dL (8.5-10.5); CREATININE 1.3 mg/dL (0.6-1.3); PHOSPHORUS 3.1 mg/dL (2.5-4.9); POTASSIUM 3.9 mMol/L (3.7-5.1)
[2016-10-15 11:58] LABS: ALBUMIN 2.2 gm/dL (3.5-5.0); TOTAL BILIRUBIN 0.5 mg/dL (0.0-1.5); TOTAL PROTEIN 5.5 g/dL (6.0-8.4)
--- NOTE | 2016-10-15 17:32 | NUR ---
Significant Event: PT. DROWSEY AND SLEEPS MOST OF DAY. STATES HE DOES THIS AT HOME TOO. AFEBRILE. HR SR IN 50-60'S. SBP 125-144. SATS 94 % ON ROOM AIR. NO RESP. DISTRESS. PT. AMBULATED WITH PHYSICAL THERAPY AROUND [employer] [facility] [employer], 1/2 WAY PT. BECOME WEAK, AND "BLACKED" OUT. RETURNED TO ROOM VIA HIS CHAIR. PT. THEN "BLACKED OUT" AGAIN. ONLY LASTING SECONDS, RESPONDED SOON HE WAS TALKED TO. PERLS [place]UGG[place]. FOLLOWED COMMANDS. HE DOESN'T REMEMBER, THIS HAPPENING. CT SCAN OF HEAD, UNCHANGED FROM PREVIOUS, SUBDURAL HEMORRHAGE IS STABLE, AND NO ACUTE INFARCT. PATIENT DOING GOOD THIS AFTERNOON LATER. A/O X 3. CONT. TO C/O RT. SIDED HEADACHE, GIVEN MED FOR THIS WITH RELIEF. LT. GROIN STABLE WITH BANDAID. Follow up: CONT. TO MONITER NEURO STATUS. MONITER CARDIAC STATUS.
--- NOTE | 2016-10-16 05:02 | NUR ---
Patient A/Ox3. VSS on RA. UP one assist with walker. Lung clear diminished. Bowel sounds present, BM this shift. IV to LT forearm saline locked. Tylenol and Ultram for headache. He didn't have anymore "blacking out episodes" for me. Possible home today.
[2016-10-16 06:09] LABS: BASOPHIL % 0.6 %; EOSINOPHIL # 0.2 K/uL (0.0-0.5); EOSINOPHIL % 3.4 %; HEMATOCRIT 26.6 % (37.0-53.0); HEMOGLOBIN 8.6 g/dL (11.0-16.0); IMMATURE GRANULOCYTE % 0.2 %; LYMPHOCYTE # 1.8 K/uL (0.8-4.0); LYMPHOCYTE % 35.7 %; MCH 33.3 pg (27.0-34.0); MCHC 32.3 gm/dL (32.0-36.5); MCV 103.1 fl (83.0-98.0); MONOCYTE # 0.4 K/uL (0.0-1.0); MONOCYTE % 8.4 %; MPV 10.7 fl (9.4-12.4); NEUTROPHIL # (ANC) 2.6 K/uL (1.4-9.0); NEUTROPHIL % 51.7 %; NRBC % 0 /100WBC (0-0.00); RBC 2.58 M/uL (3.50-5.50); RDW-CV 13.5 % (11.9-14.6)
[2016-10-16 06:11] LABS: PLATELET COUNT 111 K/uL (150-450)
[2016-10-16 06:19] LABS: ALBUMIN 2.3 gm/dL (3.5-5.0); ANION GAP 9.5 (10.0-19.0); CREATININE 1.4 mg/dL (0.6-1.3); PHOSPHORUS 3.3 mg/dL (2.5-4.9); POTASSIUM 4.5 mMol/L (3.7-5.1)
--- NOTE | 2016-10-16 17:14 | NUR ---
DR. Khalil HERE, WROTE ORDER FOR A LIFE VEST. PATIEN HAS BEEN UP IN [place] X2 BUT JUST SHORT DISTANCES. PATIENT NEEDS TO BE ON MONITOR AT ALL TIMES, EXCEPT SHOWERING PER . PATIENT HAS HAD 2 BOUTS OF DIZZINESS BUT NO LOSS OF CONSCIOUSNESS.
[2016-10-17 05:34] LABS: BASOPHIL % 0.5 %; EOSINOPHIL # 0.1 K/uL (0.0-0.5); EOSINOPHIL % 2.2 %; HEMOGLOBIN 8.8 g/dL (11.0-16.0); IMMATURE GRANULOCYTE % 0.3 %; LYMPHOCYTE % 31.6 %; MCH 33.6 pg (27.0-34.0); MCHC 32.6 gm/dL (32.0-36.5); MCV 103.1 fl (83.0-98.0); MONOCYTE # 0.5 K/uL (0.0-1.0); MONOCYTE % 7.2 %; MPV 10.9 fl (9.4-12.4); NEUTROPHIL # (ANC) 3.7 K/uL (1.4-9.0); NEUTROPHIL % 58.2 %; NRBC % 0 /100WBC (0-0.00); RBC 2.62 M/uL (3.50-5.50); RDW-CV 13.6 % (11.9-14.6); WBC 6.3 K/uL (4.0-11.0)
[2016-10-17 05:39] LABS: PLATELET COUNT 139 K/uL (150-450)
[2016-10-17 06:01] LABS: ALBUMIN 2.4 gm/dL (3.5-5.0); ANION GAP 11.7 (10.0-19.0); CREATININE 1.6 mg/dL (0.6-1.3); PHOSPHORUS 3.6 mg/dL (2.5-4.9); POTASSIUM 4.7 mMol/L (3.7-5.1)
--- NOTE | 2016-10-17 07:25 | NUR ---
Significant Event: Patient alert and oriented x3. Vital signs stable. On RA. No complaints of dizziness/syncopal episodes this shift. Patient complained of headache and chest pain/pressure with second assessment. Was visibly pale and complained of SOB when RN entered room. Vital signs stable. Mid-90% on 1L O2. Dr. Hinojosa notified. EKG, sublingual Nitro for a total of 3 Q5 minutes, 1mg Morphine, and cardiac enzymes all ordered. 2 sublingual Nitro given with little relief. 1mg Morphine given x2 with relief. Patient stated chest pain was gone. Dr. Hinojosa notified of EKG results and lab results. Patient continued to complain of 8/10 headache to right side that radiated to front forehead. Fentynol, Dilaudid, and Ativan ordered for PRN pain and anxiety. Each given throughout shift with eventual relief. Patient stated was very scared. Talked with RN before episode about sometimes wishing "it was all over." After episode, talked with RN about "wishing to have 5 more years." Patient up with 1 assist and gaitbelt from chair to bed. Right wrist and left groin sites C/D/I. CSM WNL. Accucheck at HS 192. No coverage needed per sliding scale. Patient calm and cooperative with all cares. Follow Up: LifeVest today. Will continue to monitor per plan of care.
--- NOTE | 2016-10-17 15:32 | NUR ---
A-NUTRITION F/U CBW: 75.7 KG; ADMIT WT: 73.5 KG BEING FITTED FOR LIFE VEST TODAY LABS REVIEWED MEDS: BRILINTA, LASIX, SUBLIMAZE, DILAUDID, ATIVAN, NORCO DIET RX: CONSISTENT CARB W/GLUCERNA TID. PT HAS REFUSED MOST MEALS SINCE LAST F/U D-AT NUTRITION RISK W/INADEQUATE ORAL INTAKE R/T PT REFUSING MEALS AEB INTAKE RECORDS. I-CONTINUE W/GLUCERNA TID; ENCOURAGE INTAKE M/E-GOAL: PO INTAKE >/=50% BY DISCHARGE 1)F/U PO INTAKE, SUPPLEMENT, AND POC 2)IF PT CONTINUES TO REFUSE MEALS/NUTRITION INTERVENTIONS WILL SIGN OFF 3)ASSIST NEEDED
--- NOTE | 2016-10-17 17:01 | NUR ---
Significant Event: Patient A/O x 3. Up with 1A and prosthetic leg, walker, and gaitbelt. VSS on RA while awake and 1L while sleeping. Bradycardic throughout the day with HR's in the 50's. Held A.M. amiodarone and coreg doses. Reported a frontal headache all morning, but denies this afternoon. Slept most of the day. LFA PIV SL. ACHS accu checks. Denies any other needs throughout the day. Follow up: Continue as per plan of care. Fit for life vest either this evening or strainer tender.
[2016-10-18 02:53] LABS: BASOPHIL % 0.4 %; EOSINOPHIL # 0.2 K/uL (0.0-0.5); EOSINOPHIL % 3.7 %; HEMATOCRIT 27.1 % (37.0-53.0); HEMOGLOBIN 8.9 g/dL (11.0-16.0); IMMATURE GRANULOCYTE % 0.4 %; LYMPHOCYTE # 1.6 K/uL (0.8-4.0); LYMPHOCYTE % 28.7 %; MCH 33.6 pg (27.0-34.0); MCHC 32.8 gm/dL (32.0-36.5); MCV 102.3 fl (83.0-98.0); MONOCYTE # 0.5 K/uL (0.0-1.0); MONOCYTE % 8.5 %; MPV 10.3 fl (9.4-12.4); NEUTROPHIL # (ANC) 3.3 K/uL (1.4-9.0); NEUTROPHIL % 58.3 %; NRBC % 0 /100WBC (0-0.00); PLATELET COUNT 131 K/uL (150-450); RBC 2.65 M/uL (3.50-5.50); RDW-CV 13.2 % (11.9-14.6); WBC 5.7 K/uL (4.0-11.0)
[2016-10-18 03:11] LABS: ALBUMIN 2.3 gm/dL (3.5-5.0); ANION GAP 10.3 (10.0-19.0); CALCIUM 7.8 mg/dL (8.5-10.5); CREATININE 1.5 mg/dL (0.6-1.3); MAGNESIUM 2.1 mg/dL (1.8-2.6); PHOSPHORUS 3.9 mg/dL (2.5-4.9); POTASSIUM 4.3 mMol/L (3.7-5.1)
--- NOTE | 2016-10-18 05:09 | NUR ---
Significant Event:A/Ox3. Afebrile. VSS on RA and 1L/NC when sleeping. Patient very drowsy and sleepy at start of shift. Denied pain. By 3rd assessment patient awake and complaining of 8/10 MARTINEZ, patient received 1 tab of norco and relief was noted to a 2/10. Patient is to have a lifevest fitted for him. Follow up:Possible discharge after lifevest teaching.
--- NOTE | 2016-10-18 12:14 | NUR ---
Social visit with Keyshawn. I hadn't seen him in a few days so I stopped in to see how he was doing. He reports that he is tired, but feels like he is getting better. We talked about dismissal plans. In our previous converstation, he told me his plan was home. I let him know that MD was worried that he wasn't quite ready to go home and would benifit from a short skilled stay before he goes home. Keyshawn denies wanting to go to a SNF, he says he wants to go home upon dismissal and his can help him if he needs it. He would be open to HHC to continue to help with his strengthening. He has no preference on which HHC agency follows him. F2F was left on the chart for MD to fill out and sign so I could line up HHC prior to his dismissal. Will make HHC referral later this afternoon. No other questions, needs or concerns. CM to continue to follow and assist. Sticky note was left on the front of the chart re:dismissal plans -- home with HHC to follow.
--- NOTE | 2016-10-18 19:09 | NUR ---
ULTRA HIGH FALL RISK Significant Event: A/O X3, sleepy most all of shift, norco x2 for headache, up in chair this afternoon, 1 assist/gait belt/prothesis. good appetite, fitted for lifevest @ bedside. saline lock L)FA. voids without difficulty per urinal. likes to wear O2 1l/nc at night per request. Follow up: accuchecks
[2016-10-19 04:17] LABS: BASOPHIL % 0.2 %; EOSINOPHIL # 0.2 K/uL (0.0-0.5); EOSINOPHIL % 3.7 %; HEMATOCRIT 25.3 % (37.0-53.0); HEMOGLOBIN 8.3 g/dL (11.0-16.0); IMMATURE GRANULOCYTE % 0.4 %; LYMPHOCYTE # 1.5 K/uL (0.8-4.0); LYMPHOCYTE % 31.5 %; MCH 33.1 pg (27.0-34.0); MCHC 32.8 gm/dL (32.0-36.5); MCV 100.8 fl (83.0-98.0); MONOCYTE # 0.4 K/uL (0.0-1.0); MPV 10.1 fl (9.4-12.4); NEUTROPHIL # (ANC) 2.6 K/uL (1.4-9.0); NEUTROPHIL % 56.2 %; NRBC % 0 /100WBC (0-0.00); PLATELET COUNT 116 K/uL (150-450); RBC 2.51 M/uL (3.50-5.50); RDW-CV 13.2 % (11.9-14.6); WBC 4.6 K/uL (4.0-11.0)
--- NOTE | 2016-10-19 04:26 | NUR ---
Significant event: A/O x 3. Up in chair with 1 assist. L BKA Prosthesis in room for transfers. Fitted for a life vest yesterday, patient understands how it works and has no questions at this time. Plan is to discharge home with homehealth today possibley. Gave 1 norco for a headache during 3rd assessment with releif noted. voids well per urianl. VSS
[2016-10-19 04:31] LABS: ALBUMIN 2.3 gm/dL (3.5-5.0); ANION GAP 9.2 (10.0-19.0); CREATININE 1.5 mg/dL (0.6-1.3); MAGNESIUM 1.9 mg/dL (1.8-2.6); PHOSPHORUS 3.8 mg/dL (2.5-4.9); POTASSIUM 4.2 mMol/L (3.7-5.1)
--- NOTE | 2016-10-19 12:28 | NUR ---
Dismissal orders were completed along with the F2F for [facility]. 947 I called over to [facility], talked with Desiree. Let her know that Keyshawn was dismissing today and I was also faxing her over orders as well. She was fine with this. Encouraged them to follow up with Keyshawn on Sunday if at all possible. Desiree says she will see what she can get done so he can be seen as soon as possible. No other questions, needs or concerns. CM to continue to follow and assist. Plan home with [facility] today.
[2016-10-19] MEDS ORDERED: NORVASC2.5 MG PO (12:34)
[2016-10-19] MEDS ORDERED: CORDARONE,PACE200 MG PO (12:34)
[2016-10-19] MEDS ORDERED: MAG-OX-400(241400 MG PO (12:36)
[2016-10-19] MEDS ORDERED: FLOMAX0.4 MG PO (12:36)
[2016-10-19] MEDS ORDERED: BRILINTA60 MG PO (12:37)
[2016-10-19] MEDS ORDERED: FEOSOL325 MG PO (12:38)
[2016-10-19] MEDS ORDERED: PROSCAR5 MG PO (12:39)
[2016-10-19] MEDS ORDERED: LASIX20 MG PO (12:41)
--- NOTE | 2016-10-19 13:59 | NUR ---
PATIENT IS A/OX3, VSS ON ROOM AIR. NO COMPLAINTS OF PAIN. DISMISSAL INSTRUCTIONS, NEW MEDICATIONS, POST RADIAL HEART CATH ORDERS GONE OVER WITH PATIENT AND , NO FURTHER QUESTIONS AT THIS TIME. IV REMOVED FROM LEFT WRIST WITHOUT COMPLICATIONS. PT. GETS UP SBA WITH LEFT LEG PROTHESITIC. PT. HAD SMALL EMESIS THIS AM AFTER WALKING IN [place] WITH PHYSICAL THERAPY. LIFE VEST APPLIED BEFORE DISMISSAL, INSTRUCTIONS GONE OVER WITH PT. A COUPLE OF DAYS AGO. ALL BELONGINGS SENT HOME WITH PATIENT AND .
== END 2016-10-19 13:45 | disposition home health service (06) | DRG 981 ==
LOC: GMED 06:00 → GPCU 07:08
PROVIDERS: Emergency Medicine; Internal Medicine; Internal Medicine Cardiovascular Disease; Internal Medicine Interventional Cardiology; ADMIT Internal Medicine
DX: S06.5X0A Traumatic subdural hemorrhage without loss of consciousness, initial encounter (principal); I21.4 Non-ST elevation (NSTEMI) myocardial infarction; I50.21 Acute systolic (congestive) heart failure; I47.2 Ventricular tachycardia; J96.10 Chronic respiratory failure, unspecified whether with hypoxia or hypercapnia; I27.2 Other secondary pulmonary hypertension; N17.9 Acute kidney failure, unspecified; W17.89XA Other fall from one level to another, initial encounter; E11.8 Type 2 diabetes mellitus with unspecified complications; Z79.4 Long term (current) use of insulin; E87.6 Hypokalemia; G62.9 Polyneuropathy, unspecified; I11.0 Hypertensive heart disease with heart failure; I25.10 Atherosclerotic heart disease of native coronary artery without angina pectoris; I73.9 Peripheral vascular disease, unspecified; N20.0 Calculus of kidney; I25.5 Ischemic cardiomyopathy; Z89.512 Acquired absence of left leg below knee; D50.9 Iron deficiency anemia, unspecified
CPT/HCPCS: C1725; C1769; C1874; C1887; C1894; C9600; J1170; J1644; J1940; J2250; J2270; J3010; J3475; J7030; J7120